=== PATIENT | female | born 1970 | race Caucasian/White ===

== ENCOUNTER 2018-06-17 10:10 | Outpatient (CLI) | payer OTHER ==
[~2018-06-17 10:10] MED LIST: AMOX1TAB12 PO; CARAFATE1 G; ESTROGEN CREAM; LEVSIN0.125 MG PO; OMEGA 3 FISH OI1 CAP; PROGESTERONE CREAM; PROTONIX40 MG PO; ROBINUL FORTE2 MG; ULTRACET PO; VITAMIN A10000 UNIT; ZANTAC 2525 MG PO; ZANTAC300 MG PO
== END 2018-06-17 15:24 | disposition home or self-care (01) ==
LOC: NUCLEAR 10:10
DX: I10 Essential (primary) hypertension (principal)

== ENCOUNTER 2018-07-28 19:08 | Emergency (ER) | payer OTHER ==
[~2018-07-28] VITALS: Ht 167.6 cm; Wt 93.9 kg
[2018-07-28] MEDS ORDERED: VITAMIN B COMP1 EAC1 (19:23)
[2018-07-28] MEDS ORDERED: MUPIROCIN15 GM TOP (21:53)
[2018-07-28] MEDS ORDERED: CIPRO500 MG PO (21:53)
== END 2018-07-28 22:01 | disposition home or self-care (01) ==
LOC: ER 19:08
DX: H60.12 Cellulitis of left external ear (principal)

== ENCOUNTER 2020-12-22 02:19 | Emergency (ER) | payer OTHER ==
[~2020-12-22] VITALS: Ht 167.6 cm; Wt 106.1 kg
[~2020-12-22 02:19] MED LIST changes: +CIPRO500 MG PO; +MUPIROCIN15 GM TOP; +VITAMIN B COMP1 EAC1
[2020-12-22] MEDS ORDERED: AMLODIPINE BESYL5 MG (02:35)
[2020-12-22] MEDS ORDERED: CARAFATE1 GM PO (07:28)
[2020-12-22] MEDS ORDERED: NEXIUM 24HR20 M1 PO (07:28)
[2020-12-22] MEDS ORDERED: LEVSIN/SL0.125 MG SL (07:28)
== END 2020-12-22 07:40 | disposition home or self-care (01) ==
LOC: ER 02:19
DX: K29.60 Other gastritis without bleeding (principal); R11.2 Nausea with vomiting, unspecified

== ENCOUNTER 2020-12-31 14:21 | Inpatient (IN) | payer OTHER ==
[~2020-12-31] VITALS: Ht 167.6 cm; Wt 90.7 kg
[~2020-12-31 14:21] MED LIST changes: +AMLODIPINE BESYL5 MG; +CARAFATE1 GM PO; +LEVSIN/SL0.125 MG SL; +NEXIUM 24HR20 M1 PO
[2021-02-26] MEDS ORDERED: AMLODIPINE-OLM1 EAC3 PO (10:33)
== END 2021-01-10 20:01 | disposition home or self-care (01) | DRG 373 ==
LOC: ER 14:21 → SEC-K 22:50 → SURG 01-01 13:39
PROVIDERS: ADMIT Surgery; ATTEND Surgery
PROC: BW21ZZZ Computerized Tomography (CT Scan) of Abdomen and Pelvis (ICD-10-PCS; principal; 2020-12-31)
PROC: 02HV33Z Insertion of Infusion Device into Superior Vena Cava, Percutaneous Approach (ICD-10-PCS; 2021-01-01)
PROC: BW21ZZZ Computerized Tomography (CT Scan) of Abdomen and Pelvis (ICD-10-PCS; 2021-01-03)
DX: K35.33 Acute appendicitis with perforation, localized peritonitis, and gangrene, with abscess (principal); I10 Essential (primary) hypertension; Z20.822 Contact with and (suspected) exposure to COVID-19; E66.8 Other obesity; Z68.34 Body mass index [BMI] 34.0-34.9, adult; E11.65 Type 2 diabetes mellitus with hyperglycemia; Z79.4 Long term (current) use of insulin

== ENCOUNTER 2021-02-11 07:12 | Outpatient (CLI) | payer OTHER ==
[2021-02-26] MEDS ORDERED: AMLODIPINE-OLM1 EAC3 PO (10:33)
== END 2021-02-11 07:20 | disposition home or self-care (01) ==
LOC: TOM 07:12
PROVIDERS: ATTEND Surgery
DX: G93.89 Other specified disorders of brain (principal); R51.0 Headache with orthostatic component, not elsewhere classified

== ENCOUNTER 2021-02-17 21:29 | Emergency (ER) | payer OTHER ==
[~2021-02-17] VITALS: Ht 167.6 cm; Wt 100.7 kg
[2021-02-17] MEDS ORDERED: FAMOTIDINE20 MG PO (21:59)
[2021-02-17] MEDS ORDERED: ATORVASTATIN CA10 MG PO (21:59)
[2021-02-17] MEDS ORDERED: METFORMIN HCL500 M3 PO (22:01)
[2021-02-26] MEDS ORDERED: AMLODIPINE-OLM1 EAC3 PO (10:33)
== END 2021-02-18 05:56 | disposition home or self-care (01) ==
LOC: ER 21:29
DX: R10.31 Right lower quadrant pain (principal)

== ENCOUNTER 2021-02-27 02:00 | Emergency (ER) | payer OTHER ==
[~2021-02-27] VITALS: Ht 167.6 cm; Wt 98.4 kg
[~2021-02-27 02:00] MED LIST changes: +AMLODIPINE-OLM1 EAC3 PO; +ATORVASTATIN CA10 MG PO; +FAMOTIDINE20 MG PO; +METFORMIN HCL500 M3 PO
[2021-02-27] MEDS ORDERED: FORTAMET500 MG (02:17)
== END 2021-02-27 13:37 | disposition home or self-care (01) ==
LOC: ER 02:00
DX: R10.31 Right lower quadrant pain (principal); Z11.52 Encounter for screening for COVID-19

== ENCOUNTER 2021-03-04 05:11 | Day surgery (SDC) | payer OTHER ==
[~2021-03-04 05:11] MED LIST changes: +FORTAMET500 MG
== END 2021-03-04 15:50 | disposition home or self-care (01) ==
LOC: CIR.AMB 05:11
PROVIDERS: ATTEND Surgery
DX: K35.890 Other acute appendicitis without perforation or gangrene (principal); Z20.822 Contact with and (suspected) exposure to COVID-19